=== PATIENT | male | born 1990 | race Caucasian/White ===

== ENCOUNTER 2022-01-29 07:05 | Emergency (ER) | payer BC ==
[2022-01-29 07:12] VITALS: RESP 16
--- NOTE | 2022-01-29 08:26 | XR ---
Thoracic spine and lumbar spine HISTORY: Trauma and pain 5 views of the lumbosacral spine, 3 views of the thoracic spine T11 and T12 show mild anterior wedging, superior endplate of T12 shows some associated sclerosis cons istent with superior endplate compression fracture, loss of height of only approximately 10-20%. No e vident retropulsion. There is a slight spinal curvature which could be positional. Lumbar vertebral bodies show preserved height and bone mineralization. Disc spaces are maintained in the thoracic spine. No evident paraspin al mass. No evident spondylolysis or spondylolisthesis. Spondylosis is present L5, mild disc height l oss L4-5, L5-S1. IMPRESSION: Superior endplate fracture T12, possibly T11.
[2022-01-29 09:14] VITALS: BP 127/70; PULSE 90; TEMP 99.2
--- NOTE | 2022-01-29 09:25 | ED ---
Back Pain HPI - General Chief Complaint: Back Pain/Injury Stated Complaint: Back Pain Time Seen by Provider: 01/29/22 07:25 Source: patient, RN notes reviewed Mode of arrival: ambulatory Limitations: no limitations - History of Present Illness Initial Comments: This a 31-year-old male presents emergency Department chief complaint of back pain. Patient states he states that he yesterday had a bump came down directly on his back he states he has mid low back pain. Patient states she's had no bowel bladder incontinence or tension no saddle anesthesias. He has no pain areas on his right or left leg. He states does have some outside pain no abdominal pain no other complaints. - Related Data Home Medications Medication Instructions Recorded Confirmed Acetaminophen Tab [Tylenol Tab] 1,000 mg PO Q6H PRN 01/29/22 01/29/22 Multivitamins, Thera [Multivitamin 1 tab PO DAILY 01/29/22 01/29/22 (formulary)] Allergies Allergy/AdvReac Type Severity Reaction Status Date / Time NSAIDS (Non-Steroidal Allergy Rash/Hives Verified 01/29/22 08:47 Anti-Inflamma & Passed Out Review of Systems ROS Statement: Those systems with pertinent positive or pertinent negative responses have been documented in the HPI. ROS Other: All systems not noted in ROS Statement are negative. Past Medical History Past Medical History: No Reported History History of Any Multi-Drug Resistant Organisms: None Reported Past Surgical History: No Surgical Hx Reported Past Psychological History: No Psychological Hx Reported Smoking Status: Never smoker Past Alcohol Use History: None Reported Past Drug Use History: None Reported General Exam Limitations: no limitations General appearance: alert, in no apparent distress Head exam: Present: atraumatic, normocephalic, normal inspection Eye exam: Present: normal appearance, PERRL, EOMI. Absent: scleral icterus, conjunctival injection, periorbital swelling Neck exam: Present: normal inspection, full ROM. Absent: tenderness, meningismus, lymphadenopathy Respiratory exam: Present: normal lung sounds bilaterally. Absent: respiratory distress, wheezes, rales, rhonchi, stridor, chest wall tenderness Cardiovascular Exam: Present: regular rate, normal rhythm, normal heart sounds. Absent: systolic murmur, diastolic murmur, rubs, gallop, clicks GI/Abdominal exam: Present: soft, normal bowel sounds. Absent: distended, tenderness, guarding, rebound, rigid Extremities exam: Present: other (Lower extremity strength equal bilaterally neurovascular intact) Back exam: Present: full ROM, tenderness (Mid to lower thoracic and upper), paraspinal tenderness, vertebral tenderness Neurological exam: Present: alert, oriented X3, CN II-XII intact, reflexes normal. Absent: motor sensory deficit Skin exam: Present: warm, dry, intact, normal color. Absent: rash Course Vital Signs 01/29/22 01/29/22 07:08 09:12 Temperature 98.9 F 99.2 F Pulse Rate 94 90 Respiratory 16 16 Rate Blood Pressure 147/80 127/70 O2 Sat by Pulse 98 100 Oximetry Medical Decision Making - Medical Decision Making 31-year-old presented for low back pain. Patient has evidence of superior end plate fracture T11-T12. I discussed case with on-call orthopedics patient will follow-up in office return parameters were discussed. Disposition Clinical Impression: Thoracic compression fracture Disposition: HOME SELF-CARE Condition: Stable Instructions (If sedation given, give patient instructions): Vertebral Compression Fracture (ED) Additional Instructions: Please return to the Emergency Department if symptoms worsen or any other concerns. Is patient prescribed a controlled substance at d/c from ED?: No Referrals: Nonstaff,Physician [Primary Care Provider] - 1-2 days Jelani Petersen DO [Doctor of Osteopathic Medicine] - 1-2 days Time of Disposition: 09:58
== END 2022-01-29 10:13 | disposition home or self-care (01) ==
LOC: EC 07:05
DX: M48.54XA Collapsed vertebra, not elsewhere classified, thoracic region, initial encounter for fracture (principal); Z88.6 Allergy status to analgesic agent; X58.XXXA Exposure to other specified factors, initial encounter
CPT/HCPCS: 72070; 72110; 99283